=== PATIENT | male | born 1970 | race Caucasian/White ===

== ENCOUNTER 2017-10-29 14:28 | Emergency (ER) | payer BC ==
[2017-10-29] MEDS ORDERED: Sulfamethoxazole/Trimethoprim 800-160 MG Tab PO ONE (15:02)
--- NOTE | 2017-10-29 15:06 | EDM.PDOC ---
ED HPI GENERAL MEDICAL PROBLEM - General Chief Complaint: Lower Extremity Injury/Pain Stated Complaint: LT KNEE SWOLLEN AND RED Time Seen by Provider: 10/29/17 15:00 Source of Information: Reports: Patient - History of Present Illness INITIAL COMMENTS - FREE TEXT/NARRATIVE: Jay complains of left knee pain that started . Initially as a pimple that he tried to squeeze. There after,he noted redness that has now spread causing pain going up and down the knee.No fever or systemic symptoms,and no trauma. 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 Pain Score (Numeric/FACES): 7 - Related Data Allergies Allergy/AdvReac Type Severity Reaction Status Date / Time No Known Allergies Allergy Verified 10/29/17 14:43 Home Meds: Home Meds NK [No Known Home Meds] 10/29/17 [History] Past Medical History HEENT History: Reports: Other (See Below) Other HEENT History: hx Accalasia Gastrointestinal History: Reports: None Musculoskeletal History: Reports: Fracture Other Musculoskeletal History: hx fx L collar bone Neurological History: Reports: Migraines - Past Surgical History HEENT Surgical History: Reports: Oral Surgery, Other (See Below) Other HEENT Surgeries/Procedures: surgery for Accolasia GI Surgical History: Reports: Hernia Repair/Other Other GI Surgeries/Procedures: bilat hernia repair Social & Family History - Family History Family Medical History: Noncontributory - Tobacco Use Smoking Status *Q: Never Smoker - Caffeine Use Caffeine Use: Reports: Coffee - Alcohol Use Days Per Week of Alcohol Use: 2 Number of Drinks Per Day: 4 Total Drinks Per Week: 8 - Recreational Drug Use Recreational Drug Use: No Review of Systems - Review of Systems Review Of Systems: ROS reveals no pertinent complaints other than HPI. ED EXAM, GENERAL - Physical Exam Exam: See Below Exam Limited By: No Limitations General Appearance: Alert, WD/WN Extremities: Increased Warmth, Redness, Other (Examination the redness and appears to overload in the prepatellar lateral region. The knee itself us for range of motion. Mild effusion noted in the knee.). No: Pedal Edema Course - Vital Signs Last Recorded V/S: Last Vital Signs Temp 97.9 F 10/29/17 14:36 Pulse 69 10/29/17 14:36 Resp 18 10/29/17 14:36 BP 128/66 10/29/17 14:36 Pulse Ox 99 10/29/17 14:36 Departure - Departure Time of Disposition: 15:04 Disposition: Home, Self-Care 01 Clinical Impression: Cellulitis - Discharge Information Referrals: Karime Scanlon PA-C [Primary Care Provider] - - Problem List & Annotations (1) Cellulitis SNOMED Code(s): 812561007 Code(s): L03.90 - CELLULITIS, UNSPECIFIED Status: Acute Current Visit: Yes Qualifiers: Site of cellulitis: extremity Laterality: left - Problem List Review Problem List Initiated/Reviewed/Updated: Yes - Assessment/Plan Plan: Warm compress. Bactris DS orally. Elevation. Follow up with PCP on .Return here with any worsening symptoms
== END 2017-10-29 15:17 | disposition home or self-care (01) ==
LOC: FB.ED 14:28
DX: L03.116 Cellulitis of left lower limb (principal)
CPT/HCPCS: 99283; A9270-GY